=== PATIENT | female | born 1960 | race Caucasian/White ===

== ENCOUNTER → 2018-09-11 | Outpatient (CLI) | payer OTHER, MEDICARE ==
[~2018-09-11] MED LIST: AMBIEN 10 MG TA10 MG PO; AVINZA 60 MG CA60 M1 PO; ESTRACE2 M1 PO; ESTRADIOL 1 MG T1 M1 PO; FLEXERIL PO; NUCYNTA50 MG PO; ONDANSETRON HCL4 M3 PO; PHENERGAN 25 MG25 MG PO; PROPAFENONE 15150 MG PO; RYTHMOL 150MG150 M1; TIZANIDINE; VERAPAMIL HCL180 M1 PO; ZOMIG NS; ZOMIG5 MG PO; ZPAK PO
== END ==
LOC: M.RAD 09:45
DX: R05 Cough (principal); R63.4 Abnormal weight loss; F17.200 Nicotine dependence, unspecified, uncomplicated; Z95.0 Presence of cardiac pacemaker

== ENCOUNTER → 2019-12-05 | Outpatient (CLI) | payer OTHER, MEDICARE | LOC: M.RAD 11:23 | PROVIDERS: ATTEND Internal Medicine | DX: M85.38 Osteitis condensans, other site (principal); M79.604 Pain in right leg; M79.605 Pain in left leg; G43.009 Migraine without aura, not intractable, without status migrainosus; K21.9 Gastro-esophageal reflux disease without esophagitis ==

== ENCOUNTER → 2020-02-23 | Outpatient (CLI) | payer OTHER, MEDICARE | LOC: M.LAB 15:49 | PROVIDERS: ATTEND Podiatrist Foot Surgery | DX: Z01.812 Encounter for preprocedural laboratory examination (principal); Z20.828 Contact with and (suspected) exposure to other viral communicable diseases ==

== ENCOUNTER → 2020-09-21 | Outpatient (CLI) | payer OTHER, MEDICARE | LOC: M.RAD 16:46 | PROVIDERS: ATTEND Internal Medicine | DX: J90 Pleural effusion, not elsewhere classified (principal); R05 Cough ==

== ENCOUNTER → 2021-04-19 | Outpatient (CLI) | payer OTHER, MEDICARE | LOC: M.RAD 09:48 | DX: M43.16 Spondylolisthesis, lumbar region (principal); M51.16 Intervertebral disc disorders with radiculopathy, lumbar region; M43.26 Fusion of spine, lumbar region; M25.78 Osteophyte, vertebrae; M48.061 Spinal stenosis, lumbar region without neurogenic claudication ==

== ENCOUNTER → 2021-06-03 | Outpatient (CLI) | payer OTHER, MEDICARE | LOC: M.CT 05-27 12:36 | PROVIDERS: ATTEND Internal Medicine | DX: M47.814 Spondylosis without myelopathy or radiculopathy, thoracic region (principal); M40.294 Other kyphosis, thoracic region; M48.54XA Collapsed vertebra, not elsewhere classified, thoracic region, initial encounter for fracture; M25.78 Osteophyte, vertebrae; M48.061 Spinal stenosis, lumbar region without neurogenic claudication; M43.28 Fusion of spine, sacral and sacrococcygeal region; I70.0 Atherosclerosis of aorta ==